=== PATIENT | male | born 1960 | race Caucasian/White ===

== ENCOUNTER 2024-05-20 12:12 | Emergency (ER) | payer MEDICAID ==
[~2024-05-20] VITALS: Ht 167.6 cm; Wt 85.0 kg
[2024-05-20 12:26] VITALS: O2SAT 97
[2024-05-20] MEDS ORDERED: KETOROLAC 30MG/ML VIAL IM ONE (14:00)
[2024-05-20] MEDS ORDERED: CYCLOBENZAPRINE 10MG TABLET PO ONE (14:00)
[2024-05-20] MEDS ORDERED: ACETAMINOPHEN 325MG TABLET PO ONE (14:00)
[2024-05-20] MEDS ORDERED: TOPUD MT (15:33)
[2024-05-20] MEDS ORDERED: NAPR-679 MT (15:33)
[2024-05-20] MEDS ORDERED: LIDO700A15 TP (15:33)
[2024-05-20] MEDS: KETOROLAC 30MG/ML VIAL IM NR (16:03)
[2024-05-20] MEDS: CYCLOBENZAPRINE 10MG TABLET PO NR (16:03)
[2024-05-20] MEDS: ACETAMINOPHEN 325MG TABLET PO NR (16:03)
[2024-05-20 16:20] VITALS: BP 157/84; PULSE 92; RESP 18; TEMP 36.94740; O2SAT 97
== END 2024-05-20 16:21 | disposition home or self-care (01) ==
LOC: ER 12:12
DX: S16.1XXA Strain of muscle, fascia and tendon at neck level, initial encounter (principal); S39.012A Strain of muscle, fascia and tendon of lower back, initial encounter; M51.16 Intervertebral disc disorders with radiculopathy, lumbar region; Z79.899 Other long term (current) drug therapy; X58.XXXA Exposure to other specified factors, initial encounter; Y93.89 Activity, other specified; Y92.89 Other specified places as the place of occurrence of the external cause; Y99.8 Other external cause status
CPT/HCPCS: 99285; 72125; 72131; 96372; J1885